=== PATIENT | male | born 1995 | race Caucasian/White ===

== ENCOUNTER 2019-07-27 19:30 | Emergency (ER) | payer OTHER ==
[~2019-07-27] VITALS: Ht 167.6 cm; Wt 68.0 kg
[2019-07-27] MEDS ORDERED: SENNA-DOCUSATE1 EAC1 PO (21:59)
[2019-07-27] MEDS ORDERED: NORCO 5-325 TA1 EAC1 PO (21:59)
[2019-07-27] MEDS ORDERED: IBUPROFEN 600600 M1 PO (21:59)
[2019-07-27 22:34] VITALS: BP 150/73
== END 2019-07-27 22:25 | disposition home or self-care (01) ==
LOC: ER 19:30
DX: S61.210A Laceration without foreign body of right index finger without damage to nail, initial encounter (principal); W20.8XXA Other cause of strike by thrown, projected or falling object, initial encounter; Y93.89 Activity, other specified; Y92.89 Other specified places as the place of occurrence of the external cause; Y99.8 Other external cause status

== ENCOUNTER 2019-08-01 16:37 | Emergency (ER) | payer OTHER ==
[~2019-08-01] VITALS: Ht 177.8 cm; Wt 65.8 kg
[~2019-08-01 16:37] MED LIST: IBUPROFEN 600600 M1 PO; NORCO 5-325 TA1 EAC1 PO; SENNA-DOCUSATE1 EAC1 PO
[2019-08-01 16:43] VITALS: BP 118/52
== END 2019-08-01 17:08 | disposition home or self-care (01) ==
LOC: ER 16:37
DX: Z48.01 Encounter for change or removal of surgical wound dressing (principal)